=== PATIENT | female | born 1945 ===

== ENCOUNTER 2024-01-03 08:02 | Day surgery (SDC) | payer OTHER ==
[2023-12-28 14:20] VITALS: BP 170/83
[2023-12-28 17:53] LABS: RH POSITIVE
[~2024-01-03] VITALS: Ht 157.5 cm; Wt 56.2 kg
[~2024-01-03 08:02] MED LIST: CARDURA1 MG PO; INTEGRA PLUS C1 EACH PO; JANUVIA25 MG PO; LANTUS SOL100 UNIT/1; LIPITOR40 MG PO; MICARDIS80 MG PO; PLAVIX75 MG PO; SYNTHROID100 MCG PO; TOPROL XL200 MG PO; ZETIA10 MG PO
[2024-01-03] MEDS ORDERED: DOXAZOSIN MESYLA2 MG (15:44)
[2024-01-03] MEDS ORDERED: ALBUTEROL SULFATE 3 ML/2.5 MG AMPUL.NEB IH ONE (16:00)
[2024-01-03] MEDS ORDERED: hydrALAZINE HCL 20 MG VIAL IV ONE (17:45)
[2024-01-03] MEDS ORDERED: POVIDONE-IODINE 118 ML BOTT TOP ONE (17:45)
[2024-01-03] MEDS ORDERED: SUGAMMADEX SODIUM 200 MG/2 ML VIAL IV ONE (18:00)
[2024-01-03] MEDS ORDERED: NEURONTIN300 MG PO (18:26)
[2024-01-03] MEDS ORDERED: IBU600 MG PO (18:26)
[2024-01-03] MEDS ORDERED: MORPHINE SULFATE 4 MG/ML VIAL IV ONE (19:15)
== END 2024-01-03 21:35 | disposition home or self-care (01) ==
LOC: O/R 08:02 → SURH 08:02 → CIR.AMB 08:02 → OB/GYN 08:02 → SURH 11:15 → EDSTATUS 11:15 → SURH 16:15 → O/R 21:00 → OB/GYN 21:00 → CIR.AMB 21:35 → OB/GYN 21:35 → O/R 01-04 12:47
PROVIDERS: ATTEND Obstetrics & Gynecology Gynecology
DX: D27.1 Benign neoplasm of left ovary (principal); N83.292 Other ovarian cyst, left side